=== PATIENT | female | born 1970 | race Caucasian/White ===

== ENCOUNTER 2016-12-17 09:07 | Emergency (ER) | payer OTHER ==
[2016-06-10 07:48] VITALS: BMI 34.1
[~2016-12-17 09:07] MED LIST: ADVAIR 500/501 DISK INH; BYSTOLIC5 MG PO; CARDIZEM CD180 MG PO; CARTIA XT240 MG PO; FERREX 150 PLUS1 CAP PO; KLONOPIN0.5 MG PO; LEVAQUIN500 MG PO; LEXAPRO10 MG PO; LEXAPRO20 MG PO; PREDNISONE10 MG PO; PROVENTIL/2.5 MG/3 M NEB; RYTHMOL SR225 MG PO; RYTHMOL225 MG PO; SINGULAIR10 MG PO; SYMBICORT 16010.2 GM INH; VENTOLIN HFA18 GM INH; XARELTO20 MG PO; XOPENEX HFA15 GM INH
[2016-12-17 10:13] LABS: HEMATOCRIT 38.5 % (36.0-48.0); HEMOGLOBIN 12.8 g/dL (12-16); LYMPHOCYTES 15.2 % (15-50); MCH 30.5 pg (26.0-34.0); MCHC 33.2 g/dL (31.0-37.0); MCV 91.9 fL (80.0-100.0); NEUTROPHILS 79.1 % (40-80); PLATELET COUNT 235 10x3/uL (130-400); RBC 4.19 10x6/uL (4.00-5.40); RDW 12.7 % (11.5-14.5); WBC 9.1 10x3/uL (4.8-10.8)
[2016-12-17 10:29] LABS: ALBUMIN 3.6 g/dL (3.4-5.0); ANION GAP 12.2 mmol/L (8-16); BILIRUBIN - TOTAL 0.7 mg/dL (0.2-1.3); CARBON DIOXIDE 28.3 mmol/L (21.0-32.0); CREATININE - SERUM 0.9 mg/dL (0.6-1.3); POTASSIUM - SERUM 4.5 mmol/L (3.5-5.1); PROTEIN - SERUM 7.2 g/dL (6.4-8.2)
== END 2016-12-17 11:08 | disposition home or self-care (01) ==
LOC: D.ER 09:07
PROVIDERS: Emergency Medicine
DX: S20.219A Contusion of unspecified front wall of thorax, initial encounter (principal); V43.52XA Car driver injured in collision with other type car in traffic accident, initial encounter; Y93.89 Activity, other specified; Y92.410 Unspecified street and highway as the place of occurrence of the external cause; S30.1XXA Contusion of abdominal wall, initial encounter; J45.909 Unspecified asthma, uncomplicated; I50.9 Heart failure, unspecified; D50.9 Iron deficiency anemia, unspecified

== ENCOUNTER → 2020-06-28 08:23 | Outpatient (CLI) | payer OTHER ==
[2016-06-10 07:48] VITALS: BMI 34.1
== END | disposition home or self-care (01) ==
LOC: D.MRI 08:23
PROVIDERS: ATTEND Nurse Practitioner Family
DX: M67.871 Other specified disorders of synovium, right ankle and foot (principal)